=== PATIENT | female | born 1965 | race Caucasian/White ===

== ENCOUNTER → 2021-07-14 | Outpatient (CLI) | payer SELFPAY ==
--- NOTE | 2021-07-14 16:22 | Diagnostic Imaging Report ---
INDICATION: Family history of coronary disease. TECHNIQUE: The CT cardiac calcium score study was performed with no IV contrast with images of the cardiac silhouette. Calcium scoring was then performed. Dose reduction protocol was used. FINDINGS: The visualized portions of the mediastinum show no adenopathy. The aorta shows no aneurysm. The visualized portions of the lung [place] are clear but the entirety of the lungs is not included on the study. There is a large hiatal hernia. There is no significant coronary artery calcification. The calcium score was 0 in all territories. IMPRESSION: The coronary calcium score was 0 with no significant coronary calcification. Incidental hiatal hernia. Dictated by: Dictated on workstation # [id number]
== END ==
LOC: RAD FS 15:27
PROVIDERS: ATTEND Family Medicine
DX: K44.9 Diaphragmatic hernia without obstruction or gangrene (principal); Z82.49 Family history of ischemic heart disease and other diseases of the circulatory system
CPT/HCPCS: 75571

== ENCOUNTER → 2021-07-14 | Outpatient (CLI) | payer OTHER | LOC: LAB FS 15:59 | PROVIDERS: ATTEND Family Medicine | DX: E03.9 Hypothyroidism, unspecified (principal) | CPT/HCPCS: 36415; 84443 ==

== ENCOUNTER → 2022-02-17 | Outpatient (CLI) | payer OTHER | LOC: LABNPT 15:03 | PROVIDERS: ATTEND Family Medicine | DX: N39.0 Urinary tract infection, site not specified (principal) | CPT/HCPCS: 87077; 87088 ==

== ENCOUNTER → 2022-06-22 | Outpatient (CLI) | payer OTHER ==
--- NOTE | 2022-06-22 17:02 | Diagnostic Imaging Report ---
INDICATION: COUGH COMPARISON: CT dated 07/14/2021 FINDINGS: Frontal and lateral views of the chest demonstrate normal heart size and pulmonary vascularity. The lungs are clear. There are no signs of infiltrate, pleural effusions or pneumothoraces. The visualized osseous structures show no acute abnormalities. Mild/moderate hiatal hernia is noted. IMPRESSION: 1. No acute process. No signs of infiltrates, effusions or pneumothoraces. Dictated by: Dictated on workstation # [id number]
== END ==
LOC: RAD FS 15:34
PROVIDERS: ATTEND Family Medicine
DX: R05.9 Cough, unspecified (principal)
CPT/HCPCS: 71046